=== PATIENT | male | born 1980 | race Caucasian/White ===

== ENCOUNTER 2020-08-22 12:44 | Inpatient (IN) | payer OTHER ==
[~2020-08-22] VITALS: Ht 185.4 cm; Wt 113.4 kg
[~2020-08-22 12:44] MED LIST: ACET-1600 PO; ASPI81TA45 PO; IBUP-1221 PO
[2020-08-22 13:57] VITALS: BP 131/81
[2020-08-22] MEDS ORDERED: CHLORHEXIDINE 15 ML UDC PO ONE (14:00)
[2020-08-22] MEDS ORDERED: LACTATED RINGERS 1,000 ML IV SCH (14:00)
[2020-08-22] MEDS ORDERED: CHLORHEXIDINE 15 ML UDC ONE (14:02)
[2020-08-22] MEDS ORDERED: THROMBIN 20,000 UNIT VIAL TP ONE (15:11)
[2020-08-22] MEDS ORDERED: EPINEPHRINE 1 MG/ML, 1ML ONE (15:11)
[2020-08-22] MEDS ORDERED: BUPIVACAINE/PF 0.5% ONE (15:11)
[2020-08-22] MEDS ORDERED: BACITRACIN 50,000 UNIT ONE (15:11)
[2020-08-22] MEDS ORDERED: MIDAZOLAM 1 MG/ML, 2ML ONE (15:16)
[2020-08-22] MEDS ORDERED: FENTANYL PF 250 MCG/5ML ONE (15:16)
[2020-08-22] MEDS ORDERED: OMNIPAQUE 180 MG/ML, 20ML VIAL ONE (15:30)
[2020-08-22] MEDS ORDERED: LABETALOL 5MG/ML, 20ML IV PRN (16:00)
[2020-08-22] MEDS ORDERED: KETOROLAC 30 MG/1 ML IV PRN (16:00)
[2020-08-22] MEDS ORDERED: ONDANSETRON 2MG/ML, 2ML IVPush PRN (16:00)
[2020-08-22] MEDS ORDERED: OXYcodone 5 MG/5 ML ORAL.SOL UDC PO PRN (16:00)
[2020-08-22] MEDS ORDERED: DIAZEPAM 5 MG/ML, 2ML IV PRN ×2 (16:00)
[2020-08-22] MEDS ORDERED: hydrALAzine 20 MG/ML, 1ML IV PRN (16:00)
[2020-08-22] MEDS ORDERED: PROMETHAZINE 25 MG/ML, 1ML IV PRN (16:00)
[2020-08-22] MEDS ORDERED: ALBUTEROL SULFATE 2.5 MG/3 ML NPPB PRN (16:00)
[2020-08-22] MEDS ORDERED: METOCLOPRAMIDE 5 MG/ML, 2ML IV PRN (16:00)
[2020-08-22] MEDS ORDERED: MEPERIDINE/PF 25MG/0.5ML IVPush PRN (16:00)
[2020-08-22] MEDS ORDERED: HYDROmorphone 1 MG/ML, 1ML INJ ONE ×2 (16:25→18:30)
[2020-08-22] MEDS ORDERED: ONDANSETRON 2MG/ML, 2ML ONE (18:18)
[2020-08-22] MEDS ORDERED: SUCCINYLCHOLINE 20 MG/ML, 10ML ONE (18:18)
[2020-08-22] MEDS ORDERED: PROPOFOL 10 MG/ML, 20ML ONE (18:18)
[2020-08-22] MEDS ORDERED: GLYCOPYRROLATE 0.2MG/1ML, 5ML ONE (18:18)
[2020-08-22] MEDS ORDERED: ROCURONIUM 10MG/ML,5ML ONE (18:18)
[2020-08-22] MEDS ORDERED: CEFAZOLIN 1,000 MG ONE (18:18)
[2020-08-22] MEDS ORDERED: DEXAMETHASONE 4 MG/ML, 1ML ONE (18:18)
[2020-08-22] MEDS ORDERED: NEOSTIGMINE 1 MG/ML, 10ML ONE (18:18)
[2020-08-22] MEDS ORDERED: FENTANYL PF 100 MCG/2ML ONE (18:29)
[2020-08-22] MEDS ORDERED: OXYcodone 5 MG/5 ML ORAL.SOL UDC ONE (18:30)
[2020-08-22] MEDS ORDERED: HYDROmorphone PCA 30 MG/30 ML IV PRN (18:30)
[2020-08-22] MEDS: FENTANYL PF 100 MCG/2ML IV PRN ×2 (18:30→18:45)
[2020-08-22] MEDS ORDERED: HYDROmorphone 2 MG/ML, 1ML ONE (18:31)
[2020-08-22] MEDS: HYDROmorphone 1 MG/ML, 1ML INJ IV PRN ×4 (18:41→18:56)
[2020-08-22] MEDS ORDERED: LABETALOL 5MG/ML, 20ML ONE (19:11)
[2020-08-22] MEDS ORDERED: PHARMACY MAY ADJ FOR RENAL FX MC PRN (20:30)
[2020-08-22] MEDS ORDERED: DIPHENHYDRAMINE 50 MG/ML, 1ML IM PRN (20:30)
[2020-08-22] MEDS ORDERED: morphine SULFATE 10 MG/ML, 1ML IVPush PRN (20:30)
[2020-08-22] MEDS ORDERED: SENNA/DOCUSATE TABLET PO PRN (20:30)
[2020-08-22] MEDS ORDERED: NS + 20MEQ KCL 1,000 ML IV SCH (20:30)
[2020-08-22] MEDS ORDERED: ZOLPIDEM 5MG TABLET PO PRN (20:30)
[2020-08-22] MEDS ORDERED: MAGNESIUM HYDROXIDE 8%, 30ML UDC PO PRN (20:30)
[2020-08-22] MEDS ORDERED: DEXAMETHASONE 4 MG/ML, 1ML IVPush SCH (20:30)
[2020-08-22] MEDS ORDERED: DIPHENHYDRAMINE 50 MG CAPSULE PO PRN (20:30)
[2020-08-22] MEDS ORDERED: ACETAMINOPHEN 500 MG TABLET PO PRN (20:30)
[2020-08-22] MEDS ORDERED: DIPHENHYDRAMINE 50 MG/ML, 1ML IVPush PRN (20:30)
[2020-08-22] MEDS ORDERED: BISACODYL 10 MG SUPP PR PRN (20:30)
[2020-08-22] MEDS ORDERED: METHOCARBAMOL 1,000 MG in DEXTROSE 5% 100 ML IV ONE (21:00)
[2020-08-22] MEDS: SODIUM CHLORIDE FLUSH 10ML SYR IVF SCH (21:00)
[2020-08-22] MEDS ORDERED: DEXAMETHASONE 4 MG/ML, 1ML IVPush PRN (21:30)
[2020-08-22] MEDS ORDERED: CEFAZOLIN PMX 1GM/50ML 50 ML IVPB SCH (23:00)
[2020-08-23 00:01] VITALS: BP 127/80
[2020-08-23] MEDS ORDERED: LABETALOL 5MG/ML, 20ML IVPush PRN (01:00)
[2020-08-23] MEDS ORDERED: ONDANSETRON 2MG/ML, 2ML IVPush PRN (01:00)
[2020-08-23] MEDS ORDERED: PROMETHAZINE 25 MG/ML, 1ML IM PRN (01:00)
[2020-08-23] MEDS ORDERED: NS + 20MEQ KCL 1,000 ML IV SCH (01:15)
[2020-08-23] MEDS ORDERED: ACETAMINOPHEN 650 MG SUPP PR PRN (01:30)
[2020-08-23] MEDS ORDERED: SODIUM CHLORIDE 0.9% 1,000ML IV PRN (01:30)
[2020-08-23] MEDS: HYDROcodone/APAP 10/325 MG TABLET PO PRN ×3 (02:30→09:17)
[2020-08-23 04:17] VITALS: BP 133/84
[2020-08-23] MEDS ORDERED: METHOCARBAMOL 750 MG in DEXTROSE 5% 100 ML IV SCH (05:00)
[2020-08-23 07:25] VITALS: BP 135/85
[2020-08-23] MEDS ORDERED: CEFAZOLIN PMX 1GM/50ML 50 ML IVPB SCH (08:00)
[2020-08-23] MEDS: SODIUM CHLORIDE FLUSH 10ML SYR IVF SCH (08:06)
[2020-08-23] MEDS ORDERED: METH-640 PO (09:25)
[2020-08-23] MEDS ORDERED: HYDR1TAB53 PO (09:25)
[2020-08-23] MEDS ORDERED: DOCU-131 PO (09:25)
[2020-08-23] MEDS ORDERED: METHOCARBAMOL 750 MG TABLET ONE (11:49)
[2020-08-23] MEDS ORDERED: METHOCARBAMOL 750 MG TABLET PO SCH (12:00)
[2020-08-25] MEDS ORDERED: METHOCARBAMOL 750 MG TABLET PO SCH (05:00)
== END 2020-08-23 12:34 | disposition home or self-care (01) | DRG 455 ==
LOC: ORIP 12:44 → 4NE 19:55 → DCLOUNGE 08-23 12:30
PROVIDERS: ADMIT Neurological Surgery; ATTEND Neurological Surgery
PROC: 0SB20ZZ Excision of Lumbar Vertebral Disc, Open Approach (ICD-10-PCS; 2020-08-22)
PROC: 01NB0ZZ Release Lumbar Nerve, Open Approach (ICD-10-PCS; 2020-08-22)
PROC: 3E0U0GB Introduction of Recombinant Bone Morphogenetic Protein into Joints, Open Approach (ICD-10-PCS; 2020-08-22)
PROC: 4A11X4G Monitoring of Peripheral Nervous Electrical Activity, Intraoperative, External Approach (ICD-10-PCS; 2020-08-22)
PROC: 0SG1071 Fusion of 2 or more Lumbar Vertebral Joints with Autologous Tissue Substitute, Posterior Approach, Posterior Column, Open Approach (ICD-10-PCS; principal; 2020-08-22 15:00)
PROC: 0SG10A0 Fusion of 2 or more Lumbar Vertebral Joints with Interbody Fusion Device, Anterior Approach, Anterior Column, Open Approach (ICD-10-PCS; 2020-08-22 15:00)
DX: M51.36 Other intervertebral disc degeneration, lumbar region (principal); M51.26 Other intervertebral disc displacement, lumbar region
CPT/HCPCS: 36415; 72100; S0020; 86850; 86900; G0378; J0171; J0690; J1100; J1170; J2250; J2405; J2704; J2710; J3010; J3480; Q9965; J0330; J2800; J7120